=== PATIENT | female | born 1990 | race Caucasian/White ===

== ENCOUNTER 2017-06-15 14:21 | Emergency (ER) | payer SELFPAY ==
[~2017-06-15] VITALS: Ht 162.6 cm; Wt 90.7 kg
--- NOTE | 2017-06-15 15:26 | PHYS DOC ---
Past Medical History Past Medical History: Anxiety, Hypertension, Other Additional Past Medical Histor: PTSD, IRREGULAR HEARTBEAT, TACHYCARDIA, BRADYCARDIA, PANIC ATTACK Past Surgical History: Cholecystectomy, , Hysterectomy, Tonsillectomy Alcohol Use: None Drug Use: None Social History Narrative: HX DRUG ABUSE Adult General Chief Complaint Chief Complaint: CHEST PAIN HPI HPI 27-year-old female with a history of anxiety with panic attacks and prior PTSD now complaining of palpitations. Patient states she has a prior cardiac history of having had a "minor heart attack" after an aspirin overdose previously but she has had no problems since. She has no exertional chest pain shortness of breath diaphoresis nausea or vomiting associated with this. Patient states she does have pretty severe heartburn for which she takes Prilosec with subtotal relief. She has no exertional symptoms whatsoever, no pleuritic pain, no productive cough or fever, and no recent illness Review of Systems Review of Systems Constitutional: Denies fever or chills [] Eyes: Denies change in visual acuity, redness, or eye pain [] HENT: Denies nasal congestion or sore throat [] Respiratory: Denies cough or shortness of breath [] Cardiovascular: No additional information not addressed in HPI [] GI: Denies abdominal pain, nausea, vomiting, bloody stools or diarrhea [] : Denies dysuria or hematuria [] Musculoskeletal: Denies back pain or joint pain [] Integument: Denies rash or skin lesions [] Neurologic: Denies headache, focal weakness or sensory changes [] Endocrine: Denies polyuria or polydipsia [] All other systems were reviewed and found to be within normal limits, except as documented in this note. Current Medications Current Medications Current Medications Medications (Trade) Dose Ordered Sig/Terrie Start Time Stop Time Status Last Admin Dose Admin Multi-Ingredient Mouthwash/Gargle (Gi Cocktail Single Dose) 15 ml 1X ONCE 06/15/17 15:30 06/15/17 15:31 DC 06/15/17 16:10 15 ML Allergies Allergies Allergies Coded Allergies Type Severity Reaction Last Updated Verified haloperidol Allergy Severe Anaphylaxis 06/15/17 Yes hydrocodone Allergy Severe Anaphylaxis 06/15/17 Yes Iodine and Iodide Containing Produc Allergy Intermediate N/V 06/15/17 Yes chlorpromazine Allergy Intermediate LOW BP 06/15/17 Yes lorazepam Allergy Intermediate LOW BP 06/15/17 Yes Physical Exam Physical Exam Mildly anxious 27-year-old female cheerful alert communicative cooperative and appropriate otherwise. Clear lungs regular rate and rhythm no tachycardia. No epigastric tenderness. Remainder of exam is benign Constitutional: Well developed, well nourished, no acute distress, non-toxic appearance. [] HENT: Normocephalic, atraumatic, bilateral external ears normal, oropharynx moist, no oral exudates, nose normal. [] Eyes: PERRLA, EOMI, conjunctiva normal, no discharge. [] Neck: Normal range of motion, no tenderness, supple, no stridor. [] Cardiovascular:Heart rate regular rhythm, no murmur [] Lungs & Thorax: Bilateral breath sounds clear to auscultation [] Abdomen: Bowel sounds normal, soft, no tenderness, no masses, no pulsatile masses. [] Skin: Warm, dry, no erythema, no rash. [] Back: No tenderness, no CVA tenderness. [] Extremities: No tenderness, no cyanosis, no clubbing, ROM intact, no edema. [] Neurologic: Alert and oriented X 3, normal motor function, normal sensory function, no focal deficits noted. [] Psychologic: Affect normal, judgement normal, mood normal. [] Current Patient Data Vital Signs Vital Signs Date Time Temp Pulse Resp B/P (MAP) Pulse Ox O2 Delivery O2 Flow Rate FiO2 06/15/17 16:45 68 116/69 (85) 95 Room Air 06/15/17 14:25 98.2 22 98.2 Lab Values Laboratory Tests Test 06/15/17 16:10 POC Troponin I 0.00 ng/ml (<0.08) EKG EKG [] Radiology/Procedures Radiology/Procedures [] Course & Med Decision Making Course & Med Decision Making Pertinent Labs and Imaging studies reviewed. (See chart for details) Signs and symptoms consistent with palpitations clearly contributory anxiety component with a known history of anxiety and panic for which patient has not taken any benzodiazepine today. She's hemodynamically stable and well-appearing with no evidence of acute coronary syndrome or arrhythmia. EKG and chest x-ray unremarkable. I-STAT opponent benign. Patient took a dose of her own Valium in the ED. No further workup or treatment is indicated at this time. Patient were to follow up with her primary care doctor for reevaluation and Holter monitoring as needed. She agrees with outpatient follow-up and strict return precautions will be given. Félixon Disclaimer Dragon Disclaimer This electronic medical record was generated, in whole or in part, using a voice recognition dictation system. Departure Departure Impression: Primary Impression: Chest wall pain Additional Impressions: Palpitations Anxiety Gastritis Condition: GOOD Referrals: NO PCP (PCP) Patient Instructions: Chest Wall Pain Additional Instructions: You have chest wall pain today. Take ibuprofen 800 mg every 6 hours as needed. As you know you have gastritis, or acid stomach. Take Prilosec [id number] twice a day as needed for this and follow-up with your doctor for a helicobacter pylori test to rule this out as contributing to your gastritis. You been expressing palpitations but your workup today shows no evidence of irregular heart rhythm. If the symptoms persist follow-up with your doctor to arrange Holter monitoring to definitively rule out the possibility of arrhythmia , or irregular heartbeat. As with any diagnosis, anxiety can contribute to your symptoms and this appears to be the case today. Use your anxiety medication as previously prescribed as needed. Follow-up with your doctor tomorrow Problem Qualifiers RAY TRINH MD Jun 15, 2017 15:26
[2017-06-15] MEDS ORDERED: LIDO:MAALOX:DONNATAL 1:1:1 15 ML SINGLE DOSE SWSW ONE (15:30)
--- NOTE | 2017-06-15 15:34 | EKG ---
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
--- NOTE | 2017-06-15 15:47 | RAD ---
Chest, 2 views, 06/15/2017: History: Chest pain The heart size and pulmonary vascularity are normal. The lungs are clear. There is no evidence of pleural fluid. IMPRESSION: No acute cardiopulmonary abnormality is detected.
[2017-06-15 17:40] VITALS: BP 114/71
== END 2017-06-15 17:52 | disposition home or self-care (01) ==
LOC: ER 14:21
DX: R00.2 Palpitations (principal); R07.89 Other chest pain; K29.70 Gastritis, unspecified, without bleeding; F41.9 Anxiety disorder, unspecified; I10 Essential (primary) hypertension; F43.10 Post-traumatic stress disorder, unspecified; Z88.5 Allergy status to narcotic agent; Z88.8 Allergy status to other drugs, medicaments and biological substances; Z91.041 Radiographic dye allergy status
CPT/HCPCS: 71020; 84484; 93005; 99284-25